=== PATIENT | male | born 1990 | race African-American/Black ===

== ENCOUNTER 2016-12-15 16:05 | Emergency (ER) | payer BC ==
[~2016-12-15 16:05] MED LIST: AMOXICILLIN PO; BACTRIM DS TABL1 TA1 PO; CLARITIN10 M3 PO; MAGIC MOUTHWASH PO; NO MEDICATIONS; PREDNISONE10 MG PO; ZOFRAN PO; ZOFRANODT PO
== END 2016-12-15 16:10 | disposition home or self-care (01) ==
LOC: CFTX 16:05
DX: L23.9 Allergic contact dermatitis, unspecified cause (principal)
CPT/HCPCS: 99282

== ENCOUNTER 2016-12-22 06:41 | Emergency (ER) | payer BC | END 2016-12-22 07:15 | disposition home or self-care (01) | LOC: CED 06:41 | DX: R21 Rash and other nonspecific skin eruption (principal); F17.200 Nicotine dependence, unspecified, uncomplicated | CPT/HCPCS: 99282 ==